=== PATIENT | male | born 1960 | race African-American/Black ===

== ENCOUNTER 2022-03-17 01:35 | Emergency (ER) | payer MEDICAID, OTHER ==
[~2022-03-17] VITALS: Ht 167.6 cm; Wt 95.0 kg
[2022-03-17 01:52] VITALS: BP 166/82
== END 2022-03-17 03:25 | disposition left against medical advice (07) ==
LOC: ER 01:35
DX: R09.89 Other specified symptoms and signs involving the circulatory and respiratory systems (principal); I10 Essential (primary) hypertension
CPT/HCPCS: 99281